=== PATIENT | female | born 1935 | race Caucasian/White ===

== ENCOUNTER 2021-11-17 23:22 | Emergency (ER) | payer OTHER ==
[2021-11-18 00:14] LABS: HEMOGLOBIN 12.4 gm/dl (12.3-15.3); RED BLOOD COUNT 4.1 M/UL (4.00-5.10); WHITE BLOOD COUNT 8.4 K/UL (4.5-11.0)
[2021-11-18] MEDS ORDERED: HYDROCODON-ACE1 EAC2 PO (02:22)
== END 2021-11-18 03:25 | disposition home or self-care (01) ==
LOC: ER1 23:22
PROVIDERS: Student in an Organized Health Care Education/Training Program
DX: S42.251A Displaced fracture of greater tuberosity of right humerus, initial encounter for closed fracture (principal); S42.211A Unspecified displaced fracture of surgical neck of right humerus, initial encounter for closed fracture; I10 Essential (primary) hypertension; W01.0XXA Fall on same level from slipping, tripping and stumbling without subsequent striking against object, initial encounter; Y92.009 Unspecified place in unspecified non-institutional (private) residence as the place of occurrence of the external cause
CPT/HCPCS: 70450; 72125; 73030; 80048; 85025; 93005; 96374; 99284; J2270